=== PATIENT | male | born 1980 | race Two or more races ===

== ENCOUNTER 2016-08-01 01:09 | Emergency (ER) | payer OTHER ==
[2016-08-01] MEDS ORDERED: NS 1,000 ML IV ONE (01:27)
[2016-08-01] MEDS ORDERED: ONDANSETRON 4 MG/2 ML VIAL IVP ONE (01:27)
[2016-08-01 01:41] LABS: % IMMATURE GRANULYOCYTES 0.2 % (0.0-1.1); ABSOLUTE IMMATURE GRANULOCYTES 0.03 10^3/uL (0.00-0.10); ADD DIFF? NO; ADD MORPH? NO; ADD SCAN? NO; ATYPICAL LYMPHOCYTE FLAG 0 (0-99); FRAGMENT RBC FLAG 0 (0-99); HEMATOCRIT 44.3 % (40.0-51.0); HEMOGLOBIN 15.8 g/dL (13.7-17.5); LEFT SHIFT FLG 0 (0-99); LIPEMIA HEMOLYSIS FLAG 90 (0-99); MEAN CELL HEMOGLOBIN 29.1 pg (27.9-34.1); MEAN CELL HEMOGLOBIN CONCENTR. 35.7 g/dL (32.4-36.7); MEAN CELL VOLUME 81.6 fL (81.5-99.8); MEAN PLATELET VOLUME 9.7 fL (8.7-11.7); PLATELET CLUMPS FLAG 0 (0-99); PLATELET COUNT 197 10^3/uL (150-400); RED BLOOD CELL COUNT 5.43 10^6/uL (4.40-6.38); RED CELL DISTRIBUTION WIDTH 11.9 % (11.5-15.2)
[2016-08-01 01:50] LABS: ALANINE AMINOTRANSFERASE 34 IU/L (21-72); ALBUMIN 4.3 g/dL (3.5-5.0); ALKALINE PHOSPHATASE 95 IU/L (38-126); ANION GAP 13 mEq/L (8-16); ASPARTATE AMINOTRANSFERASE 21 IU/L (17-59); BILIRUBIN-CONJUGATED 0.2 mg/dL (0.0-0.5); BILIRUBIN-UNCONJUGATED 0.8 mg/dL (0.0-1.1); CALCIUM 9.3 mg/dL (8.5-10.4); CARBON DIOXIDE 25 mEq/l (22-31); CHLORIDE 101 mEq/L (97-110); CREATININE 0.9 mg/dL (0.7-1.3); GLOMERULAR FILTRATION RATE > 60; GLUCOSE 106 mg/dL (70-100); POTASSIUM 3.6 mEq/L (3.5-5.2); SODIUM 139 mEq/L (134-144); TOTAL PROTEIN 7.1 g/dL (6.3-8.2)
[2016-08-01] MEDS ORDERED: IOPAMIDOL (ISOVUE-300) 50 ML VIAL IV ONE (02:14)
--- NOTE | 2016-08-01 03:14 | EDPHY ---
H & P Stated Complaint: ABD PAIN OFF/ON SINCE YEST, QUEST LACTOSE INTOL Time Seen by Provider: 08/01/16 01:18 HPI/ROS: HPI The patient presents with abdominal pain which has been present for the last 2 days. It has been intermittent and he 1st noticed it after dinner last night. It lasted for about 5 hours then got better on its own. Tonight again after dinner the pain became more severe and has been constant ever since. It is a dull pain, moderate in severity, is throughout his lower abdomen and does not radiate. He took a dose of lactate to see if that would help his symptoms, but it did not. he last had a small bowel movement earlier today. He had an episode of vomiting tonight. He has a history of prior abdominal surgery at the age of 14 for possibly a Meckel's diverticulum.. REVIEW OF SYSTEMS Constitutional: No fever, no chills. Eyes: No discharge. ENT: No sore throat. Cardiovascular: No chest pain, no palpitations. Respiratory: No cough, no shortness of breath. Gastrointestinal: See HPI Genitourinary: No hematuria. Musculoskeletal: No back pain. Skin: No rashes. Neurological: No headache. PMHx: Meckel's diverticulum PHYSICAL General Appearance: Alert, no distress Eyes: Pupils equal and round no pallor or injection ENT, Mouth: Mucous membranes moist Respiratory: There are no retractions, lungs are clear to auscultation Cardiovascular: Regular rate and rhythm Gastrointestinal: Abdomen is soft and and tender in both lower quadrants without guarding or rebound, no masses, bowel sounds normal Neurological: A&O, moves all extremities Skin: Warm and dry, no rashes Musculoskeletal: Neck is supple non tender Extremities: symmetrical, full range of motion Psychiatric: Patient is oriented X 3, there is no agitation Source: Patient Exam Limitations: No limitations - Personal History Current Tetanus/Diphtheria Vaccine: Yes - Medical/Surgical History Hx Asthma: No Hx Chronic Respiratory Disease: No Hx Diabetes: No Hx Cardiac Disease: No Hx Renal Disease: No Hx Cirrhosis: No Hx Alcoholism: No Hx HIV/AIDS: No Hx Splenectomy or Spleen Trauma: No 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 - Social History Smoking Status: Never smoked Constitutional: Initial Vital Signs Temperature (C) 36.8 C 08/01/16 01:12 Heart Rate 60 08/01/16 01:12 Respiratory Rate 18 08/01/16 01:12 Blood Pressure 125/68 H 08/01/16 01:12 O2 Sat (%) 97 08/01/16 01:12 O2 Delivery Mode Room Air Allergies/Adverse Reactions: No Known Allergies Allergy (Unverified 08/01/16 01:11) Home Medications: Medication Instructions Recorded Magnesium Citrate [Magnesium 300 ml PO ONCE #1 bottle 08/01/16 Citrate 300 ml (*)] Polyethylene Glycol 3350 [Miralax 17 gm PO DAILY #10 pkt 08/01/16 17 gm (*)] Medical Decision Making - Diagnostics Imaging: CT scan of abdomen with IV contrast shows distended colon with fecal material and minimal fecalization of distal small bowel, discussed with Dr. Schwartz of Radiology. ED Course/Re-evaluation: The patient was given a L of normal saline and a dose of morphine with improvement in his symptoms. Labs were checked and were relatively unremarkable. He had a CT scan which demonstrated severe constipation. I have discussed this finding with him. He says he has no prior history of constipation. I will discharge him with MiraLax and magnesium citrate. I have discussed with him high-fiber diet and plenty of fluids as well. Differential Diagnosis: This is a 35-year-old man with history of Meckel's diverticulum who presents from home with diffuse abdominal pain associated with vomiting for the last 2 days Differential diagnosis includes small bowel obstruction, diverticulitis, gastritis, constipation. - Data Points Laboratory Results: Laboratory Results 08/01/16 01:30 08/01/16 01:30 08/01/16 01:30 WBC 12.02 H 10^3/uL (3.80-9.50) RBC 5.43 10^6/uL (4.40-6.38) Hgb 15.8 g/dL (13.7-17.5) Hct 44.3 % (40.0-51.0) MCV 81.6 fL (81.5-99.8) MCH 29.1 pg (27.9-34.1) MCHC 35.7 g/dL (32.4-36.7) RDW 11.9 % (11.5-15.2) Plt Count 197 10^3/uL (150-400) MPV 9.7 fL (8.7-11.7) Neut % (Auto) 83.8 H % (39.3-74.2) Lymph % (Auto) 11.7 L % (15.0-45.0) [place] % (Auto) 3.8 L % (4.5-13.0) Eos % (Auto) 0.2 L % (0.6-7.6) Baso % (Auto) 0.3 % (0.3-1.7) Nucleat RBC Rel Count 0.0 % (0.0-0.2) Absolute Neuts (auto) 10.06 H 10^3/uL (1.70-6.50) Absolute Lymphs (auto) 1.41 10^3/uL (1.00-3.00) Absolute Monos (auto) 0.46 10^3/uL (0.30-0.80) Absolute Eos (auto) 0.02 L 10^3/uL (0.03-0.40) Absolute Basos (auto) 0.04 10^3/uL (0.02-0.10) Absolute Nucleated RBC 0.00 10^3/uL (0-0.01) Immature Gran % 0.2 % (0.0-1.1) Immature Gran # 0.03 10^3/uL (0.00-0.10) Sodium 139 mEq/L (134-144) Potassium 3.6 mEq/L (3.5-5.2) Chloride 101 mEq/L (97-110) Carbon Dioxide 25 mEq/l (22-31) Anion Gap 13 mEq/L (8-16) BUN 20 mg/dL (7-23) Creatinine 0.9 mg/dL (0.7-1.3) Estimated GFR > 60 Glucose 106 H mg/dL (70-100) Calcium 9.3 mg/dL (8.5-10.4) Total Bilirubin 1.0 mg/dL (0.1-1.4) Conjugated Bilirubin 0.2 mg/dL (0.0-0.5) Unconjugated Bilirubin 0.8 mg/dL (0.0-1.1) AST 21 IU/L (17-59) ALT 34 IU/L (21-72) Alkaline Phosphatase 95 IU/L (38-126) Total Protein 7.1 g/dL (6.3-8.2) Albumin 4.3 g/dL (3.5-5.0) Lipase 66.0 IU/L (23-300) Medications Given: Discontinued Medications Sodium Chloride (Ns) 1,000 mls @ 0 mls/hr IV ONCE ONE PRN Reason: Wide Open Stop: 08/01/16 01:28 Last Admin: 08/01/16 01:56 Dose: 1,000 mls Morphine Sulfate (Morphine) 6 mg IVP EDNOW ONE Stop: 08/01/16 01:28 Last Admin: 08/01/16 01:55 Dose: 6 mg Ondansetron HCl (Zofran) 4 mg IVP EDNOW ONE Stop: 08/01/16 01:28 Last Admin: 08/01/16 01:57 Dose: 4 mg Departure - Departure Disposition: Home, Routine, Self-Care Clinical Impression: Abdominal pain, Constipation Condition: Good Instructions: Constipation (ED), High Fiber Diet (ED) Referrals: Leonila Rose MD [Primary Care Provider] - As per Instructions Prescriptions: Magnesium Citrate [Magnesium Citrate 300 ml (*)] 300 ml PO ONCE #1 bottle Polyethylene Glycol 3350 [Miralax 17 gm (*)] 17 gm PO DAILY #10 pkt
[2016-08-01] MEDS ORDERED: MAGNESIUM CITRATE 300 ML BOTTLE ONE (03:31)
[2016-08-01 03:39] VITALS: BP 107/66; PULSE 50; RESP 16; TEMP 96.7; O2SAT 95
--- NOTE | 2016-08-01 11:20 | CT ---
CT Scan of the Abdomen and Pelvis With Contrast Indication: Abdominal pain in a 35-year-old male with a history of volvulus, appendectomy and bowel s urgery. Technique: Multidetector CT images of the abdomen and pelvis were obtained following the uneventful i ntravenous administration of 100 mL Isovue-300 contrast. Dilute oral contrast was also administered. Dose reduction techniques were utilized. Abdomen: Lung bases: Normal. No pleural fluid. Moderately large amount of gas and fecal material are seen throughout the colon to the level of the r ectum. Sigmoid colon is rather prominently dilated. There is minimal fecalization of the distal small bowel which may represent minimal low-grade obstruction secondary to the colonic findings. There is a focal region of prior small bowel surgery in the mid abdomen. There is no associated bowel obstruct ion at the operative level. No free air is seen. Liver: Normal. Biliary system: Normal gallbladder. No intra or extrahepatic dilatation. Spleen: Normal. Pancreas: Normal. Adrenals: Normal. Kidneys: No obstruction or solid masses. Abdominal Aorta: No aneurysm. No ascites, or retroperitoneal lymphadenopathy. CT Pelvis Findings: By clinical history the appendix is surgically absent. No free fluid or free air is seen. Degenerative changes are noted in the spine. Impression: 1. Extensive colonic gas and fecal material raises the possibility of constipation. 2. See above report for additional findings. The study was performed as an emergency on-call case and discussed by telephone with Dr. Jacobson at 0 300 hours. The final interpretation is concordant with the original communication.
== END 2016-08-01 03:40 | disposition home or self-care (01) ==
DX: K59.00 Constipation, unspecified (principal)
CPT/HCPCS: 96374; J2405; Q9967

== ENCOUNTER 2016-08-03 19:50 | Emergency (ER) | payer OTHER ==
[2016-08-03 19:58] VITALS: TEMP 97.3
[2016-08-03] MEDS ORDERED: HYDROmorphONE/DILAUDID 1 MG/ML SYR IVP ONE ×2 (20:21→21:18)
[2016-08-03] MEDS ORDERED: ONDANSETRON DISINTEGRATING 4 MG TAB PO ONE (20:21)
[2016-08-03] MEDS ORDERED: ONDANSETRON 4 MG/2 ML VIAL ONE (20:23)
[2016-08-03] MEDS ORDERED: HYDROmorphONE/DILAUDID 1 MG/ML SYR ONE (20:23)
[2016-08-03] MEDS ORDERED: NS 1,000 ML IV ONE ×2 (20:31→21:08)
--- NOTE | 2016-08-03 20:44 | EDPHY ---
H & P Time Seen by Provider: 08/03/16 20:29 HPI/ROS: HPI Lower abdominal pain. 35-year-old male by private vehicle with his girlfriend. This patient has a history of a Meckel's diverticulum with what sounds like a bowel resection about 25 years ago. He has also had an appendectomy. He reports he developed lower abdominal pain starting on Tuesday. He was seen in the emergency department Tuesday morning. His CT scan showed constipation but no other significant pathology. He was discharged from the emergency department. He reports that he felt better on Tuesday. He reports that his pain started returning yesterday and has been associated with watery diarrhea and 2 episodes of nonbilious nonbloody vomiting. He describes the pain is very intense and cramping in the lower abdomen. ROS: Constitutional: No fever, no chills. No weakness. Eyes: No discharge. No changes in vision. ENT: No sore throat. No nasal congestion or rhinorrhea. Respiratory: No cough. No shortness of breath. Cardiac: No chest pain, no palpitations. Gastrointestinal: No abdominal pain, no vomiting, no diarrhea. Genitourinary: No hematuria. No dysuria or increased frequency with urination. Musculoskeletal: No back pain. No neck pain. No myalgias or arthralgias. Skin: No rashes. Neurological: No headache. No focal weakness or altered sensation. Past medical history: Appendectomy, Meckel's diverticulum, bowel resection. Social history: Nonsmoker. He is from [facility]. Here with his girlfriend. Physical Exam: General Appearance: Alert, he appears uncomfortable. This patient is responding to questions appropriately and in full sentences. This patient appears well-hydrated and well-nourished. Eyes: Pupils equal and round no pallor or injection. No lid edema, erythema or injection. Respiratory: There are no retractions, lungs are clear to auscultation with good air movement bilaterally. Cardiovascular: Regular rate and rhythm. No murmur. Gastrointestinal: Abdomen is soft with vague lower abdominal tenderness on palpation, no masses, bowel sounds normal. No focal tenderness at McBurney's point. No Webb sign. Neurological: Motor sensory function is grossly intact. Cranial nerves are normal. Gait is normal. Skin: Warm and dry, no rashes. Musculoskeletal: Neck is supple and nontender. Extremities are symmetrical. All joints range without pain or impingement. Psychiatric: No agitation. No depression. Database: EKG: Imaging: CT abdomen and pelvis without IV contrast: Negative for small-bowel obstruction. Moderate stool noted. No free fluid. No free air. No other significant pathology. Results were discussed with staff radiologist Dr. Alvino Davidson. Procedures: Emergency department course: IV placed. He was placed on a monitor. He was started on IV normal saline with 1 L to be given over the next hour. He was initially given 1 mg of IV hydromorphone and 4 mg of IV Zofran. Given his prior surgical history and his level of discomfort at this time as well as the history of vomiting there is a concern for bowel obstruction/volvulus. I discussed reimaging by CT. He endorses. 10:30 p.m., patient re-evaluated. Results of this CAT scan were discussed with him. He is still having some pain but states that he feels better. Repeat abdominal exam he is soft with mild and vague lower abdominal tenderness on palpation. I discussed admission with him for observation and pain control overnight. He is not sure he wants to do this. He is asking for time to talk over with his girlfriend. 11:15 p.m., patient re-evaluated. Repeat abdominal exam is soft, nontender nondistended. He is declining admission. Risks were discussed with him with his full understanding. I will give him follow-up referral to Gastroenterology. Return to emergency department precautions were thoroughly reviewed with him. All of his questions were answered. He was discharged home in good condition with his girlfriend. Differential Diagnosis: The differential diagnosis on this patient includes but is not limited to bowel obstruction, volvulus, diverticulitis, colitis. This represents a partial list of diagnoses considered. These considerations are based on history, physical exam, past history, reassessment and diagnostic testing. Smoking Status: Never smoked Constitutional: Initial Vital Signs Temperature (C) 36.3 C 08/03/16 19:53 Heart Rate 60 08/03/16 19:53 Respiratory Rate 22 H 08/03/16 19:53 Blood Pressure 120/83 H 08/03/16 19:53 O2 Sat (%) 96 08/03/16 19:53 O2 Delivery Mode Room Air Allergies/Adverse Reactions: No Known Allergies Allergy (Unverified 08/03/16 19:52) Home Medications: Medication Instructions Recorded Magnesium Citrate [Magnesium 300 ml PO ONCE #1 bottle 08/01/16 Citrate 300 ml (*)] Polyethylene Glycol 3350 [Miralax 17 gm PO DAILY #10 pkt 08/01/16 17 gm (*)] Docusate Sodium [Colace 100 MG (*)] 100 mg PO TID #20 cap 08/03/16 Hydrocodone/APAP 5/325 [[place] 1 - 2 tab PO Q4-6PRN PRN #10 tab 08/03/16 5/325 (*)] Medical Decision Making - Data Points Laboratory Results: Laboratory Results 08/03/16 20:20 08/03/16 20:20 08/03/16 08/03/16 21:15 20:20 WBC 10.31 H 10^3/uL (3.80-9.50) RBC 5.69 10^6/uL (4.40-6.38) Hgb 16.1 g/dL (13.7-17.5) Hct 46.4 % (40.0-51.0) MCV 81.5 fL (81.5-99.8) MCH 28.3 pg (27.9-34.1) MCHC 34.7 g/dL (32.4-36.7) RDW 12.0 % (11.5-15.2) Plt Count 198 10^3/uL (150-400) MPV 10.1 fL (8.7-11.7) Neut % (Auto) 72.3 % (39.3-74.2) Lymph % (Auto) 19.3 % (15.0-45.0) [place] % (Auto) 7.3 % (4.5-13.0) Eos % (Auto) 0.3 L % (0.6-7.6) Baso % (Auto) 0.4 % (0.3-1.7) Nucleat RBC Rel Count 0.0 % (0.0-0.2) Absolute Neuts (auto) 7.46 H 10^3/uL (1.70-6.50) Absolute Lymphs (auto) 1.99 10^3/uL (1.00-3.00) Absolute Monos (auto) 0.75 10^3/uL (0.30-0.80) Absolute Eos (auto) 0.03 10^3/uL (0.03-0.40) Absolute Basos (auto) 0.04 10^3/uL (0.02-0.10) Absolute Nucleated RBC 0.00 10^3/uL (0-0.01) Immature Gran % 0.4 % (0.0-1.1) Immature Gran # 0.04 10^3/uL (0.00-0.10) Sodium 139 mEq/L (134-144) Potassium 4.2 mEq/L (3.5-5.2) Chloride 99 mEq/L (97-110) Carbon Dioxide 27 mEq/l (22-31) Anion Gap 13 mEq/L (8-16) BUN 22 mg/dL (7-23) Creatinine 1.4 H D mg/dL (0.7-1.3) Estimated GFR 57 Glucose 94 mg/dL (70-100) Calcium 9.6 mg/dL (8.5-10.4) Urine Color PALE YELLOW Urine Appearance CLEAR Urine pH 8.0 H (5.0-7.5) Ur Specific [place] 1.008 (1.002-1.030) Urine Protein NEGATIVE (NEGATIVE) Urine Ketones 1+ H (NEGATIVE) Urine Blood NEGATIVE (NEGATIVE) Urine Nitrate NEGATIVE (NEGATIVE) Urine Bilirubin NEGATIVE (NEGATIVE) Urine Urobilinogen NEGATIVE EU (0.2-1.0) Ur Leukocyte Esterase NEGATIVE (NEGATIVE) Urine RBC 1-3 /hpf (0-3) Urine WBC 1-3 /hpf (0-3) Ur Epithelial Cells Not Reported Amorphous Sediment PRESENT /hpf (NONE-1+) Ur Culture Indicated? NOT INDICATED (NI) Urine Glucose NEGATIVE (NEGATIVE) Medications Given: Discontinued Medications Hydromorphone HCl (Dilaudid) 1 mg IVP EDNOW ONE Stop: 08/03/16 20:22 Last Admin: 08/03/16 20:31 Dose: 1 mg Hydromorphone HCl (Dilaudid) 0.5 mg IVP EDNOW ONE Stop: 08/03/16 21:19 Last Admin: 08/03/16 21:25 Dose: 0.5 mg Sodium Chloride (Ns) 1,000 mls @ 0 mls/hr IV ONCE ONE PRN Reason: Wide Open Stop: 08/03/16 20:32 Last Admin: 08/03/16 20:31 Dose: 1,000 mls Sodium Chloride (Ns) 1,000 mls @ 0 mls/hr IV ONCE ONE PRN Reason: Wide Open Stop: 08/03/16 21:09 Last Admin: 08/03/16 21:10 Dose: 1,000 mls Ondansetron HCl (Zofran Odt) 4 mg PO EDNOW ONE Stop: 08/03/16 20:22 Last Admin: 08/03/16 20:31 Dose: 4 mg Ondansetron HCl (Zofran) 4 mg IVP EDNOW ONE Stop: 08/03/16 22:29 Last Admin: 08/03/16 22:37 Dose: 4 mg Departure - Departure Disposition: Home, Routine, Self-Care Clinical Impression: Lower abdominal pain Condition: Good Instructions: Acute Abdominal Pain (ED) Additional Instructions: Read and follow provided instructions. Follow-up with sizing machine tender as soon as possible, within the next 2-3 days , for re-evaluation. [place]/Percocet dosin-2 every 4-[address] for [address] Do not drive on this medication. Ibuprofen dosin mg every 6 hours with meals for the next 3 days only. Return to the emergency department for worsening pain, vomiting, fever, blood in stool or other serious concerns. Referrals: Joselito Hollingsworth MD, FACG [Medical Doctor] - As per Instructions Ron Macario MD [Medical Doctor] - As per Instructions Prescriptions: Docusate Sodium [Colace 100 MG (*)] 100 mg PO TID #20 cap Hydrocodone/APAP 5/325 [[place]eflin 5/325 (*)] 1 - 2 tab PO Q4-6PRN PRN #10 tab PRN Reason: Pain, Moderate
[2016-08-03 20:49] LABS: % IMMATURE GRANULYOCYTES 0.4 % (0.0-1.1); ABSOLUTE IMMATURE GRANULOCYTES 0.04 10^3/uL (0.00-0.10); ADD DIFF? NO; ADD MORPH? NO; ADD SCAN? NO; ATYPICAL LYMPHOCYTE FLAG 10 (0-99); FRAGMENT RBC FLAG 0 (0-99); HEMATOCRIT 46.4 % (40.0-51.0); HEMOGLOBIN 16.1 g/dL (13.7-17.5); LEFT SHIFT FLG 0 (0-99); LIPEMIA HEMOLYSIS FLAG 90 (0-99); MEAN CELL HEMOGLOBIN 28.3 pg (27.9-34.1); MEAN CELL HEMOGLOBIN CONCENTR. 34.7 g/dL (32.4-36.7); MEAN CELL VOLUME 81.5 fL (81.5-99.8); MEAN PLATELET VOLUME 10.1 fL (8.7-11.7); PLATELET CLUMPS FLAG 10 (0-99); PLATELET COUNT 198 10^3/uL (150-400); RED BLOOD CELL COUNT 5.69 10^6/uL (4.40-6.38)
[2016-08-03 21:11] LABS: ANION GAP 13 mEq/L (8-16); CALCIUM 9.6 mg/dL (8.5-10.4); CARBON DIOXIDE 27 mEq/l (22-31); CHLORIDE 99 mEq/L (97-110); CREATININE 1.4 mg/dL (0.7-1.3); GLOMERULAR FILTRATION RATE 57; GLUCOSE 94 mg/dL (70-100); POTASSIUM 4.2 mEq/L (3.5-5.2); SODIUM 139 mEq/L (134-144)
[2016-08-03 21:25] LABS: COLOR PALE YELLOW; LEUKOCYTE ESTERASE,URINE NEGATIVE (NEGATIVE); NITRITE,URINE NEGATIVE (NEGATIVE)
[2016-08-03 21:35] LABS: AMORPHOUS PRESENT /hpf (NONE-1+)
--- NOTE | 2016-08-03 22:06 | CT ---
CT Scan of the Urinary Tract (Abdomen and Pelvis Without Contrast) Clinical Indications: Abdominal pain. Prior abdominal surgery for volvulus. Technique: Multidetector helical CT imaging was performed from the kidneys to the urinary bladder wi thout contrast. Findings: Abdomen: No calcifications are found within the kidneys, ureters and bladder. No evidence of hydron ephrosis. Perirenal fat is not edematous. Anastomotic suture is present in the mid small bowel to the left of midline at the level of the umbil icus, without small bowel distention. Moderate retained stool is present throughout the colon, especi ally the right colon and transverse colon. No free air or peritoneal fluid. The appendix is surgicall y absent by history. Pelvis: No pelvic masses are seen. There is no free fluid seen. Impression: Negative non-contrast CT examination of the urinary system. Prior small bowel surgery, w ithout features of small bowel obstruction. Moderate retained stool throughout the ascending and venegas sverse colon. Results called to Dr. Beck at 10:00 PM. Attention: This CT examination is specifically designed to evaluate patients who are clinically susp ected of having acute obstructive uropathy. This examination does not use radiographic contrast, and as such, provides only a limited evaluation of the abdomen, pelvis and retroperitoneum. If there i s further clinical suspicion for pathological conditions other than obstructive uropathy, a complete CT evaluation of the abdomen and pelvis utilizing intravenous, oral, and rectal contrast should be co nsidered.
[2016-08-03] MEDS ORDERED: ONDANSETRON 4 MG/2 ML VIAL IVP ONE (22:28)
[2016-08-03] MEDS ORDERED: HYDROCOD/APAP 5/325 PREPACK#6 BTL TAKEHOME ONE (23:18)
[2016-08-03 23:41] VITALS: BP 123/71; PULSE 70; RESP 16; O2SAT 93
== END 2016-08-03 23:45 | disposition home or self-care (01) ==
DX: R10.30 Lower abdominal pain, unspecified (principal); Z90.49 Acquired absence of other specified parts of digestive tract
CPT/HCPCS: 96374; J1170; J2405

== ENCOUNTER 2016-08-04 19:13 | Inpatient (IN) | payer OTHER ==
[2016-08-04] MEDS ORDERED: ONDANSETRON 4 MG/2 ML VIAL ONE (19:30)
[2016-08-04] MEDS ORDERED: ONDANSETRON 4 MG/2 ML VIAL IVP ONE ×2 (19:37→19:49)
[2016-08-04] MEDS ORDERED: NS 1,000 ML IV ONE ×2 (19:37→19:49)
--- NOTE | 2016-08-04 19:37 | CPEKG ---
Heart Rate: 60 RR Interval: 1000 P-R Interval: 148 QRSD Interval: 96 QT Interval: 432 QTC Interval: 432 P [place]: 77 QRS [place]: 74 T Wave [place]: 52 EKG Severity - NORMAL ECG - EKG Impression: SINUS RHYTHM Electronically Signed By: Frankie Segura 04-Aug-2016 20:51:56
--- NOTE | 2016-08-04 19:49 | EDPHY ---
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 He has a history of a Meckel's diverticulum resection with bowel resection and appendectomy in the past. Current has been in his normal state of health until 4 days ago. At that time developed severe abdominal pain and cramping which radiated to his lower abdomen. He was seen here has CT scan of his abdomen and pelvis which were read as constipation. He also had normal blood work done at that time which was unremarkable. He was sent home with laxatives and instructions to follow up as an outpatient. Patient returned yesterday stating the pain had returned. He is states that he gets up in the morning the pain pain is progressively worse as the night progresses. No nausea or vomiting. He has been taking the laxatives. CT without contrast last night showed moderate stool in the colon otherwise negative. Laboratory evaluations again at that time were unremarkable. He was sent home with magnesium citrate, MiraLax, docusate and [place]. Patient states he was feeling much better this morning. Has a course that today's gone eyes had worsening pain. The pain in the epigastrium and left lower abdomen. Again no fevers or chills. He states he did have a loose bowel movement this morning after taking the magnesium citrate. He fell while at work. Over the course of 8 afternoon pain began getting significantly worse again. Again no fevers or chills. Some nausea no vomiting. Has had some pain is epigastric which radiates to his chest as well. ROS: 10 point Review of Systems is negative except as noted in the HPI. Physical exam: Gen: Awake, Alert, uncomfortable appearing HEENT: Nose: no rhinorrhea Eyes: PERRLA, EOMI Mouth: Moist mucosa Neck: Supple, no JVD Chest: nontender, lungs clear to auscultation Heart: S1, S2 normal, no murmur Abd: Soft, left lower quadrant tenderness with deep palpation in a tenderness along the inguinal canal. Mild left abdominal guarding. Mild epigastric tenderness as well. Genetal: No scrotal tenderness or swelling. He has normal testicular lie. He does have a left inguinal hernia but there is no incarceration. No redness or swelling. Back: no CVA tenderness, no midline tenderness Ext: no edema, non-tender Skin: no rash Neuro: CN II-XII intact, Sensation grossly intact, Strength 5/5 in bilateral upper and lower extremities (Frankie Segura) Constitutional: Initial Vital Signs Temperature (C) 36.6 C 08/04/16 19:29 Heart Rate 61 08/04/16 19:29 Respiratory Rate 18 08/04/16 19:29 Blood Pressure 112/68 08/04/16 19:29 O2 Sat (%) 99 08/04/16 19:29 O2 Delivery Mode Room Air Allergies/Adverse Reactions: No Known Allergies Allergy (Unverified 08/03/16 19:52) Home Medications: Medication Instructions Recorded Magnesium Citrate [Magnesium 300 ml PO ONCE #1 bottle 08/01/16 Citrate 300 ml (*)] Polyethylene Glycol 3350 [Miralax 17 gm PO DAILY #10 pkt 08/01/16 17 gm (*)] Docusate Sodium [Colace 100 MG (*)] 100 mg PO TID #20 cap 08/03/16 Hydrocodone/APAP 5/325 [[place] 1 - 2 tab PO Q4-6PRN PRN #10 tab 08/03/16 5/325 (*)] Medical Decision Making - Diagnostics EKG Interpretation: ECG: Time 7:36 p.m.. Normal sinus rhythm. Normal intervals, normal axis, no acute ST or T-wave changes: Impression: Normal ECG (Frankie Segura) ED Course/Re-evaluation: 35-year-old male with 3rd visit for abdominal pain. ECG is normal. CBC, chemistry, LFTs, lipase and troponin are all normal. He has some left lower abdominal exam. He states that he did have a loose bowel movement this morning after using Mag citrate. The etiology of his abdominal pain remains unclear at this time. He does have a indirect inguinal hernia however there is no incarceration or message at this time. I have discussed with , general surgery. He is requesting a plain film of his abdomen and he will come and evaluate him in the emergency department. (Frankie Segura) I assumed care of the patient at 9:00 p.m. pending surgical evaluation. The patient was seen by Dr. Brantley who does not feel the patient has an acute abdomen. The patient will be admitted by the hospitalist service for observation this evening. Should his clinical condition change additional imaging may be warranted. Consultation is made with the hospitalist service who will admit the patient this evening. (Meliton Womack) - Data Points Laboratory Results: Laboratory Results 08/04/16 19:25 08/04/16 19:25 08/04/16 19:25 WBC 9.62 H 10^3/uL (3.80-9.50) RBC 5.34 10^6/uL (4.40-6.38) Hgb 15.5 g/dL (13.7-17.5) Hct 44.1 % (40.0-51.0) MCV 82.6 fL (81.5-99.8) MCH 29.0 pg (27.9-34.1) MCHC 35.1 g/dL (32.4-36.7) RDW 12.0 % (11.5-15.2) Plt Count 183 10^3/uL (150-400) MPV 10.2 fL (8.7-11.7) Neut % (Auto) 74.4 H % (39.3-74.2) Lymph % (Auto) 15.8 % (15.0-45.0) [place] % (Auto) 9.0 % (4.5-13.0) Eos % (Auto) 0.1 L % (0.6-7.6) Baso % (Auto) 0.4 % (0.3-1.7) Nucleat RBC Rel Count 0.0 % (0.0-0.2) Absolute Neuts (auto) 7.15 H 10^3/uL (1.70-6.50) Absolute Lymphs (auto) 1.52 10^3/uL (1.00-3.00) Absolute Monos (auto) 0.87 H 10^3/uL (0.30-0.80) Absolute Eos (auto) 0.01 L 10^3/uL (0.03-0.40) Absolute Basos (auto) 0.04 10^3/uL (0.02-0.10) Absolute Nucleated RBC 0.00 10^3/uL (0-0.01) Immature Gran % 0.3 % (0.0-1.1) Immature Gran # 0.03 10^3/uL (0.00-0.10) Sodium 139 mEq/L (134-144) Potassium 3.8 mEq/L (3.5-5.2) Chloride 101 mEq/L (97-110) Carbon Dioxide 23 mEq/l (22-31) Anion Gap 15 mEq/L (8-16) BUN 15 mg/dL (7-23) Creatinine 1.2 mg/dL (0.7-1.3) Estimated GFR > 60 Glucose 111 H mg/dL (70-100) Calcium 9.7 mg/dL (8.5-10.4) Total Bilirubin 1.3 mg/dL (0.1-1.4) Conjugated Bilirubin 0.2 mg/dL (0.0-0.5) Unconjugated Bilirubin 1.1 mg/dL (0.0-1.1) AST 20 IU/L (17-59) ALT 32 IU/L (21-72) Alkaline Phosphatase 79 IU/L (38-126) Troponin I < 0.012 ng/mL (0-0.034) Total Protein 7.0 g/dL (6.3-8.2) Albumin 4.4 g/dL (3.5-5.0) Lipase 107.0 IU/L (23-300) Medications Given: Discontinued Medications Sodium Chloride (Ns) 1,000 mls @ 0 mls/hr IV EDNOW ONE PRN Reason: Wide Open Stop: 08/04/16 19:38 Last Admin: 08/04/16 19:30 Dose: 1,000 mls Sodium Chloride (Ns) 1,000 mls @ 0 mls/hr IV ONCE ONE PRN Reason: Wide Open Stop: 08/04/16 19:50 Last Admin: 08/04/16 19:50 Dose: Not Given Morphine Sulfate (Morphine) 4 mg IVP ONCE ONE Stop: 08/04/16 19:50 Last Admin: 08/04/16 20:06 Dose: 4 mg Ondansetron HCl (Zofran) 4 mg IVP EDNOW ONE Stop: 08/04/16 19:38 Last Admin: 08/04/16 19:30 Dose: 4 mg Ondansetron HCl (Zofran) 4 mg IVP EDNOW ONE Stop: 08/04/16 19:50 Last Admin: 08/04/16 19:50 Dose: Not Given Departure - Departure Disposition: [facility] In[facility] Acute Clinical Impression: Abdominal pain Condition: Good
[2016-08-04 19:56] LABS: % IMMATURE GRANULYOCYTES 0.3 % (0.0-1.1); ABSOLUTE IMMATURE GRANULOCYTES 0.03 10^3/uL (0.00-0.10); ADD DIFF? NO; ADD MORPH? NO; ADD SCAN? NO; ATYPICAL LYMPHOCYTE FLAG 20 (0-99); FRAGMENT RBC FLAG 0 (0-99); HEMATOCRIT 44.1 % (40.0-51.0); HEMOGLOBIN 15.5 g/dL (13.7-17.5); LEFT SHIFT FLG 0 (0-99); LIPEMIA HEMOLYSIS FLAG 90 (0-99); MEAN CELL HEMOGLOBIN CONCENTR. 35.1 g/dL (32.4-36.7); MEAN CELL VOLUME 82.6 fL (81.5-99.8); MEAN PLATELET VOLUME 10.2 fL (8.7-11.7); PLATELET CLUMPS FLAG 0 (0-99); PLATELET COUNT 183 10^3/uL (150-400); RED BLOOD CELL COUNT 5.34 10^6/uL (4.40-6.38)
[2016-08-04 20:02] LABS: ALANINE AMINOTRANSFERASE 32 IU/L (21-72); ALBUMIN 4.4 g/dL (3.5-5.0); ALKALINE PHOSPHATASE 79 IU/L (38-126); ANION GAP 15 mEq/L (8-16); ASPARTATE AMINOTRANSFERASE 20 IU/L (17-59); BILIRUBIN,TOTAL 1.3 mg/dL (0.1-1.4); BILIRUBIN-CONJUGATED 0.2 mg/dL (0.0-0.5); BILIRUBIN-UNCONJUGATED 1.1 mg/dL (0.0-1.1); CALCIUM 9.7 mg/dL (8.5-10.4); CARBON DIOXIDE 23 mEq/l (22-31); CHLORIDE 101 mEq/L (97-110); CREATININE 1.2 mg/dL (0.7-1.3); GLOMERULAR FILTRATION RATE > 60; GLUCOSE 111 mg/dL (70-100); POTASSIUM 3.8 mEq/L (3.5-5.2); SODIUM 139 mEq/L (134-144)
[2016-08-04 20:13] LABS: TROPONIN I < 0.012 ng/mL (0-0.034)
--- NOTE | 2016-08-04 21:45 | DX ---
Two-View Abdomen Clinical Indication: Abdominal pain. FINDINGS: The bowel gas pattern is normal. A moderate amount of gas is scattered throughout the col on. A moderate amount of stool is present in the rectum. No evidence of free air. The lungs are cl ear at the bases. The heart size is normal. Bones are grossly unremarkable. IMPRESSION: Normal two-view abdomen.
[2016-08-04] MEDS ORDERED: PROMETHAZINE HCL 25 MG/ML INJ IVP PRN (23:08)
[2016-08-04] MEDS ORDERED: SENNOSIDES/DOCUSATE SODIUM TAB PO PRN (23:17)
[2016-08-04] MEDS ORDERED: POLYETHYLENE GLYCOL 3350 17 GM PKT PO PRN (23:18)
[2016-08-05] MEDS: HYDROmorphONE/DILAUDID 1 MG/ML SYR IVP PRN ×5 (01:13→23:15)
[2016-08-05] MEDS: ONDANSETRON 4 MG/2 ML VIAL IVP PRN ×2 (01:16→23:19)
--- NOTE | 2016-08-05 03:06 | PDGENHP ---
History and Physical - Chief Complaint abdominal pain - History of Present Illness Patient is a 35-year-old male with known medical history who presents to the ED complaining of abdominal pain. Patient states pain started on 07/30, located in his lower abdomen, waxing and waning in nature, at worst 9/10 in intensity. He has never experienced this type of pain before, as pain is not associated with nausea, vomiting, diarrhea, although patient does report constipation, without significant bowel movements since the pain started. He also has been unable to maintain any p.o. intake since the pain started due to intensify of pain after trying to eat. Patient was seen in the ER for these complaints on 08/01 and . CTs abdomen/pelvis were obtained on both visits, were both largely unrevealing other than evidence of constipation. He was discharged with antiemetics and stool softeners and returns to the ED again with the same symptoms. On evaluation in the ED today, patient's vital signs were stable and he was afebrile. He was complaining of intense abdominal pain and nausea. He was given antiemetics and pain control. Labs including CBC and CMP were within normal limits. Abdominal x-ray revealed normal bowel gas pattern. Surgery was consulted and recommended admission for pain control. History Information - Allergies/Home Medication List Allergies/Adverse Reactions: No Known Allergies Allergy (Unverified 08/03/16 19:52) I have personally reviewed and updated: family history, medical history, social history, surgical history - Past Medical History Additional medical history: History of Meckel's diverticulum - Surgical History Additional surgical history: Meckel's diverticulum surgical correction, with appendectomy in childhood - Family History Positive for: non-pertinent - Social History Smoking Status: Never smoked Alcohol Use: Rarely Drug Use: None Additional social history: 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 Originally from [place]. Lives here in [place] with his family. Review of Systems ROS: 10pt was reviewed & negative except for what was stated in HPI & below Physical Exam Temp Pulse Resp BP Pulse Ox 37.0 C 48 L 12 116/77 98 08/04/16 22:51 08/04/16 22:51 08/04/16 22:51 08/04/16 22:51 08/04/16 22:51 Constitutional: appears nourished, uncomfortable Eyes: PERRL, anicteric sclera, EOMI Ears, Nose, Mouth, Throat: moist mucous membranes, hearing normal, ears appear normal, no oral mucosal ulcers Cardiovascular: regular rate and rhythym, no murmur, rub, or gallop, pulses symmetric bilaterally, No JVD, No edema Peripheral Pulses: 2+: dorsalis-pedis (R), dorsalis-pedis (L) Respiratory: no respiratory distress, no rales or rhonchi, clear to auscultation Gastrointestinal: soft, non-tender abdomen, no palpable masses, tenderness, guarding, rebound, No hepatosplenomegally Genitourinary: no bladder fullness, no bladder tenderness Skin: warm, normal color, no rashes or abrasions, no fluctuance, no induration, No mottled Musculoskeletal: full muscle strength, no muscle tenderness, normal joint ROM, no joint effusions Neurologic: AAOx3, sensation intact bilaterally, CN II-XII Intact, No weakness, No numbness Psychiatric: interacting appropriately, not anxious, not encephalopathic, thought process linear Lab Data & Imaging Review 08/04/16 19:25 08/04/16 19:25 WBC 9.62 10^3/uL (3.80-9.50) H 08/04/16 19:25 RBC 5.34 10^6/uL (4.40-6.38) 08/04/16 19:25 Hgb 15.5 g/dL (13.7-17.5) 08/04/16 19:25 Hct 44.1 % (40.0-51.0) 08/04/16 19:25 MCV 82.6 fL (81.5-99.8) 08/04/16 19:25 MCH 29.0 pg (27.9-34.1) 08/04/16 19:25 MCHC 35.1 g/dL (32.4-36.7) 08/04/16 19:25 RDW 12.0 % (11.5-15.2) 08/04/16 19:25 Plt Count 183 10^3/uL (150-400) 08/04/16 19:25 MPV 10.2 fL (8.7-11.7) 08/04/16 19:25 Neut % (Auto) 74.4 % (39.3-74.2) H 08/04/16 19:25 Lymph % (Auto) 15.8 % (15.0-45.0) 08/04/16 19:25 [place] % (Auto) 9.0 % (4.5-13.0) 08/04/16 19:25 Eos % (Auto) 0.1 % (0.6-7.6) L 08/04/16 19:25 Baso % (Auto) 0.4 % (0.3-1.7) 08/04/16 19:25 Nucleat RBC Rel Count 0.0 % (0.0-0.2) 08/04/16 19:25 Absolute Neuts (auto) 7.15 10^3/uL (1.70-6.50) H 08/04/16 19:25 Absolute Lymphs (auto) 1.52 10^3/uL (1.00-3.00) 08/04/16 19:25 Absolute Monos (auto) 0.87 10^3/uL (0.30-0.80) H 08/04/16 19:25 Absolute Eos (auto) 0.01 10^3/uL (0.03-0.40) L 08/04/16 19:25 Absolute Basos (auto) 0.04 10^3/uL (0.02-0.10) 08/04/16 19:25 Absolute Nucleated RBC 0.00 10^3/uL (0-0.01) 08/04/16 19:25 Immature Gran % 0.3 % (0.0-1.1) 08/04/16 19:25 Immature Gran # 0.03 10^3/uL (0.00-0.10) 08/04/16 19:25 Sodium 139 mEq/L (134-144) 08/04/16 19:25 Potassium 3.8 mEq/L (3.5-5.2) 08/04/16 19:25 Chloride 101 mEq/L (97-110) 08/04/16 19:25 Carbon Dioxide 23 mEq/l (22-31) 08/04/16 19:25 Anion Gap 15 mEq/L (8-16) 08/04/16 19:25 BUN 15 mg/dL (7-23) 08/04/16 19:25 Creatinine 1.2 mg/dL (0.7-1.3) 08/04/16 19:25 Estimated GFR > 60 08/04/16 19:25 Glucose 111 mg/dL (70-100) H 08/04/16 19:25 Calcium 9.7 mg/dL (8.5-10.4) 08/04/16 19:25 Total Bilirubin 1.3 mg/dL (0.1-1.4) 08/04/16 19:25 Conjugated Bilirubin 0.2 mg/dL (0.0-0.5) 08/04/16 19:25 Unconjugated Bilirubin 1.1 mg/dL (0.0-1.1) 08/04/16 19:25 AST 20 IU/L (17-59) 08/04/16 19:25 ALT 32 IU/L (21-72) 08/04/16 19:25 Alkaline Phosphatase 79 IU/L (38-126) 08/04/16 19:25 Troponin I < 0.012 ng/mL (0-0.034) 08/04/16 19:25 Total Protein 7.0 g/dL (6.3-8.2) 08/04/16 19:25 Albumin 4.4 g/dL (3.5-5.0) 08/04/16 19:25 Lipase 107.0 IU/L (23-300) 08/04/16 19:25 Visualized and Interpreted imaging results: Yes Interpretation: AXR: normal bowel gas pattern. 08/03 CT abd/pelvis: no evidence of obstruction; constipation Assessment & Plan Assessment: Patient is a 35-year-old male with history of Meckel's diverticulum which was surgically corrected in childhood who presents to the ED with 5 days of abdominal pain with associated nausea, etiology of pain is unrevealing after [address]. Plan: # acute abdominal pain Etiology of the pain is unclear at this time. Differential includes partial bowel obstruction, new inflammatory bowel disease vs IBS. Surgery consulted, feel abdominal exam is not consistent with taking acute abdomen and there is no indication for surgical exploration at this point. Will check lactic acid, follow CBC and check ESR/CRP to evaluate for any underlying inflammatory state. Will continue pain control, antiemetics and IV fluid hydration. Will also obtain small-bowel follow-through study to rule out obstruction. # dispo:admit to observation unit for symptom control # full code
[2016-08-05 05:00] LABS: % IMMATURE GRANULYOCYTES 0.6 % (0.0-1.1); ABSOLUTE IMMATURE GRANULOCYTES 0.04 10^3/uL (0.00-0.10); ADD DIFF? NO; ADD MORPH? NO; ADD SCAN? NO; ATYPICAL LYMPHOCYTE FLAG 10 (0-99); FRAGMENT RBC FLAG 0 (0-99); HEMOGLOBIN 13.8 g/dL (13.7-17.5); LEFT SHIFT FLG 10 (0-99); LIPEMIA HEMOLYSIS FLAG 80 (0-99); MEAN CELL HEMOGLOBIN 28.4 pg (27.9-34.1); MEAN CELL HEMOGLOBIN CONCENTR. 33.7 g/dL (32.4-36.7); MEAN CELL VOLUME 84.4 fL (81.5-99.8); MEAN PLATELET VOLUME 10.2 fL (8.7-11.7); PLATELET CLUMPS FLAG 0 (0-99); PLATELET COUNT 146 10^3/uL (150-400); RED BLOOD CELL COUNT 4.86 10^6/uL (4.40-6.38); RED CELL DISTRIBUTION WIDTH 12.1 % (11.5-15.2)
[2016-08-05 05:28] LABS: ANION GAP 6 mEq/L (8-16); C-REACTIVE PROTEIN < 5.0 mg/L (<10.0); CALCIUM 7.5 mg/dL (8.5-10.4); CARBON DIOXIDE 24 mEq/l (22-31); CHLORIDE 112 mEq/L (97-110); CREATININE 0.7 mg/dL (0.7-1.3); GLOMERULAR FILTRATION RATE > 60; GLUCOSE 79 mg/dL (70-100); POTASSIUM 3.7 mEq/L (3.5-5.2); SODIUM 142 mEq/L (134-144)
[2016-08-05 05:47] LABS: SEDIMENTATION RATE 3 MM/HR (0-15)
--- NOTE | 2016-08-05 06:06 | SOAPPROG ---
Downtime Inpatient MD Late Entry SOAP Note: Patient was seen in the Emergency Room 08/04/16 for Surgical Consultation: Full consult note was dictated (#[id number]) but has not yet been transcribed. I have left a message for Medical Records. Carly Brantley MD, FACS
--- NOTE | 2016-08-05 06:39 | PDCONSULT ---
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 Kelley Brantley MD, FACS
[2016-08-05] MEDS: NS 1,000 ML IV SCH ×2 (07:35→23:14)
--- NOTE | 2016-08-05 10:05 | GCON ---
[f rep st] CONSULTATION SURGICAL CONSULTATION DATE OF CONSULTATION: 08/04/2016 CHIEF COMPLAINT: Abdominal pain. HISTORY OF PRESENT ILLNESS: Patient is a 35-year-old previously healthy male, presented to the emergency department on the , the , and now on the for evaluation of intermittent recurring abdominal pain. The patient was evaluated on the and the in the emergency department with CT scans of the abdomen that showed primarily obstipation. He was treated symptomatically with laxatives. He noted at home some fever low-grade associated with nausea and emesis, and after taking Mag citrate had liquid stool for the better part of a day. This was between his visit on the and the . He returned on the with recurrent pain and had another CT scan performed, which showed persistent obstipation. He was given additional laxatives and some narcotics. He felt pretty good this morning. 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 Approximately 4 o'clock in the afternoon, the pain began to recur. He presented to the emergency department this evening, and was seen and evaluated by Dr. Shai Ardon and Dr. Meliton Gipson. Surgical consultation was requested. The patient currently feels better after receiving intravenous morphine. He has no localized pain in the abdomen. When he did experience pain it was in the left lower quadrant and left flank area. He has had no emesis today. He has been passing flatus today. He had a bowel movement today. The patient reports no appetite currently. PAST MEDICAL HISTORY: Significant for surgery at age 14 for what sounds like a Meckel's diverticulum requiring small bowel resection and anastomosis in [place]. MEDICATIONS: He takes no medications on a regular basis. ALLERGIES: He has no known drug allergies. 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 He does not have a primary care physician that he has ever seen in [place] and has lived here for 3-1/2 years. He is an avid runner. FAMILY HISTORY: Noncontributory. REVIEW OF SYSTEMS: Patient denies melena, hematochezia, hematemesis, dysuria or hematuria. There is no history of nephrolithiasis. He does report a low- grade fever. PHYSICAL EXAMINATION: GENERAL: Reveals a slender, athletic-appearing, young man who is in no acute distress. VITAL SIGNS: Blood pressure is 106/65, heart rate is 55, respiratory rate is 18, O2 saturation is 93% on room air, temperature is 36.6. HEENT: There is no scleral icterus. NECK: Supple without adenopathy. Trachea is midline. LUNGS: Clear to auscultation. HEART: Regular in rate and rhythm. ABDOMEN: Flat, soft with a midline incision that appeared to heal by secondary intention, but without hernia. Bowel sounds are present and normoactive. There is no percussion tenderness. There is no tenderness to palpation anteriorly. The patient has mild tenderness in the left flank. There is no inguinal mass, adenopathy or hernia, although I did not stand up the patient for a formal hernia exam. RECTAL EXAM: Not repeated. IMAGING STUDIES: Two prior CT scans were reviewed and show a prior surgical anastomosis without dilatation of the small bowel proximally. There was extensive constipation present on both the CAT scans. Plain films today show gas throughout the colon without significant dilatation of the small bowel or stomach. There is no free air. LABORATORY STUDIES: WBC today is 9.6, hemoglobin 15.5, hematocrit 44.1, platelets are 183,000, sodium is 139, potassium 3.8, chloride 101, bicarb 23, BUN 15, creatinine 1.2, glucose 111, bilirubin 1.3, conjugated bilirubin 0.2, unconjugated bilirubin 1.1, AST is 20, ALT is 32, alkaline phosphatase is 79, albumin is 4.4, lipase is 107. IMPRESSION: Abdominal pain of unclear etiology. No evidence of surgical abdomen. There is a broad differential that does include adhesions since the patient had a prior surgery, but I would not recommend exploration at this time. If further symptoms persist would recommend a small bowel follow through study with Gastrografin and GI consultation. This could be performed as an outpatient though the patient is reluctant to return home without a firm diagnosis. I discussed the case with Dr. Meliton Womack and recommended admission to the medical service. /[id number]/MODL MTDD
--- NOTE | 2016-08-05 13:13 | SOAPPROG ---
SOAP Progress Note Assessment/Plan: Assessment: Plan: Subjective: vss, af sbft totally normal. pt can't locate areaof pain., just all over severe post prandial pain, and vomiting. also says feels pain in his chest during episodes. will check an ultrasound of the gqallbladder. Objective: Vital Signs Temp Pulse Resp BP Pulse Ox 36.9 C 54 L 18 98/58 L 98 08/05/16 07:33 08/05/16 07:33 08/05/16 07:33 08/05/16 07:33 08/05/16 07:33 Laboratory Results 08/05/16 04:45 08/05/16 04:45 08/04/16 08/05/16 08/06/16 05:59 05:59 05:59 Intake Total 850 560 Balance 850 560 ICD10 Worksheet Patient Problems: Problems Problem Status Diagnosed Abdominal pain Acute
--- NOTE | 2016-08-05 14:26 | DX ---
Small bowel series History: Abdominal pain, most prominent after eating solid food, history of small bowel resection for Meckel's diverticulum. Comparison: CT abdomen pelvis August 03, 2016, plain film abdomen August 04, 2016. Technique: Online Content Developer view of the abdomen obtained. After the oral administration of Entero Vu, serial pily ges including intermittent spot images of the small bowel were obtained. Fluoroscopic time: 1.3 minutes. Dose= 21.2 mGy. Findings: Online Content Developer view demonstrates no obstruction. Anastomotic staple line is noted in the left mid ab domen. Mild stool is present in the proximal colon. Normal small bowel transit time with contrast kendra ntified in the ascending colon at 85 minutes. The duodenum, jejunum, and ileum have normal fold patte rn without evidence of inflammatory changes, definite intraluminal filling defects, obstruction, dila tion, or tethering. The terminal ileum is normal. Impression: Normal small bowel series.
--- NOTE | 2016-08-05 16:31 | HOSPPROG ---
Hospitalist Progress Note Assessment/Plan: ASSESSMENT/PLAN: # abdominal pain of unclear etiology - right upper quadrant ultrasound ordered by General surgery - check Meckel's scan tomorrow, fecal occult blood test - pain control IV # dispo: Inpatient needs greater than 2 midnights for treatment of the above Chart reviewed SUBJECTIVE: Ongoing abdominal pain OBJECTIVE: Vitals reviewed Comfortable, no acute distress Regular rate and rhythm, no murmurs rubs or gallops No respiratory distress, lungs clear to auscultation bilaterally; no wheezes rales or rhonchi Abdomen with normal bowel sounds, soft, diffusely tender to palpation, nontender LABORATORY DATA: Reviewed IMAGING: All imaging reviewed and discussed with Dr. Enamorado Objective: Vital Signs Temp Pulse Resp BP Pulse Ox 36.9 C 54 L 18 98/58 L 98 08/05/16 07:33 08/05/16 07:33 08/05/16 07:33 08/05/16 07:33 08/05/16 07:33 Laboratory Results 08/05/16 04:45 08/05/16 04:45 08/04/16 08/05/16 08/06/16 05:59 05:59 05:59 Intake Total 850 560 Balance 850 560 ICD10 Worksheet Patient Problems: Problems Problem Status Diagnosed Abdominal pain Acute
--- NOTE | 2016-08-05 17:50 | US ---
Sonography Limited To The Right Upper Quadrant Of The Abdomen CLINICAL HISTORY: 35-year-old male with postprandial pain. The patient has a history of a volvulus, a n appendectomy, and prior bowel surgery with a recent normal small bowel follow-through series. TECHNIQUE: A curvilinear 5 MHz transducer was used to sonographically evaluate the right upper quadra nt of the abdomen. Color Doppler was used. COMPARISON STUDIES: CT imaging of the abdomen over the last week. FINDINGS: The pancreatic contour is normal. The abdominal aorta is normal in size and tapers normally . The visualized IVC is normal in caliber. The hepatic vein trifurcation is normal. The main portal v ein is patent. The liver is normal in size, measuring 14.0 cm along the right midaxillary line. There is no intra or extrahepatic bile duct dilatation. The common bile duct measures 3.1 mm. The gallbla dder is moderately distended, and there is no evidence of cholelithiasis, sludge, polyp, wall thicken ing, pericholecystic fluid, or sonographic Webb sign. The right kidney is normal in size, shape, an d contour, with normal renal cortical thickness and no focal renal mass or hydronephrosis. It measure s 11.7 x 4.9 x 4.8 cm. The right renal cortex measures 1.4 cm. There is no ascites or right pleural e ffusion. IMPRESSION: Normal study.
[2016-08-05 20:52] VITALS: RESP 16
[2016-08-06] MEDS: HYDROmorphONE/DILAUDID 1 MG/ML SYR IVP PRN ×4 (03:19→18:22)
[2016-08-06] MEDS: ONDANSETRON 4 MG/2 ML VIAL IVP PRN ×2 (03:19→19:27)
--- NOTE | 2016-08-06 07:25 | SOAPPROG ---
Downtime Inpatient Late Entry SOAP Note: Recurrent pain last PM/UGI showed no SBO KUB this AM shows barium in colon AFVSS Abd: soft/non-tender, bowel sounds normoactive Imp: abd pain of unclear etiology-no evidence of obstruction Rec: continue medical workup/consider GI consult Meckle's scan cancelled (Patient is s/p resection) Carly Brantley MD, FACS
--- NOTE | 2016-08-06 08:09 | DX ---
IAN, 7:17 AM HISTORY: Follow-up small bowel follow-through from yesterday COMPARISON: Yesterday's barium exam FINDINGS: All the patient's small bowel barium has moved into the colon. IMPRESSION: No evidence for small bowel obstruction.
[2016-08-06] MEDS ORDERED: ONDANSETRON DISINTEGRATING 4 MG TAB PO PRN (09:54)
--- NOTE | 2016-08-06 10:04 | HOSPPROG ---
Hospitalist Progress Note Assessment/Plan: ASSESSMENT/PLAN: # abdominal pain of unclear etiology - Meckel's cancelled by Dr Brantley - pain control IV, add PO options - discussed with Dr. Orr - will plan EGD likely today # dispo: Inpatient needs greater than 2 midnights for treatment of the above # high risk receiving IV narcotics SUBJECTIVE: Ongoing abdominal pain - required IV Dilaudid overnight OBJECTIVE: Vitals reviewed Comfortable, no acute distress Regular rate and rhythm, no murmurs rubs or gallops No respiratory distress, lungs clear to auscultation bilaterally; no wheezes rales or rhonchi Abdomen with normal bowel sounds, soft, diffusely tender to palpation, nontender LABORATORY DATA: Reviewed IMAGING: All imaging reviewed and discussed with Dr. Enamorado Objective: Vital Signs Temp Pulse Resp BP Pulse Ox 36.4 C 66 16 116/67 94 08/06/16 07:53 08/06/16 07:53 08/06/16 07:53 08/06/16 07:53 08/06/16 07:53 08/05/16 08/06/16 08/07/16 05:59 05:59 05:59 Intake Total 1500 Output Total 1000 Balance 500 ICD10 Worksheet Patient Problems: Problems Problem Status Diagnosed Abdominal pain Acute
[2016-08-06] MEDS ORDERED: MIDAZOLAM 2 MG/2 ML VIAL ONE ×2 (10:54→11:16)
[2016-08-06] MEDS ORDERED: fentaNYL 100 MCG/2 ML INJ ONE (10:54)
--- NOTE | 2016-08-06 12:40 | GPN ---
[f rep st] PROCEDURE NOTE PROCEDURE: Upper endoscopy. INDICATION: Abdominal pain. MEDICATIONS: Used 5 mg of Versed, 125 mcg fentanyl. COMPLICATIONS: None acutely. CONSCIOUS SEDATION TIME: Conscious sedation was started at 11:07 a.m. and ended at 11:25 a.m., for a total time of 18 minutes. DESCRIPTION OF PROCEDURE: After informed consent was obtained, the patient was placed in the left lateral decubitus position and the forward viewing upper endoscope was advanced through the mouth and to the proximal duodenum. Retroflex views in the gastric cardia were obtained. FINDINGS: 1. Normal esophagus. 2. Mild gastritis in the antrum was noted. 3. Normal duodenum. 4. Biopsies of the gastric antrum as well as normal duodenum were obtained. IMPRESSION/RECOMMENDATIONS: Abdominal pain. No clear source of abdominal pain was identified at today's upper endoscopy. Biopsies to rule out celiac disease and H pylori were obtained. At this time, I recommend continued supportive care. I am hopeful for gradual stepwise improvement given the patient's otherwise clinical well-being and extensive, so far, negative workup. Given the gastritis and the ongoing symptoms, I believe that acid suppression therapy is prudent. Perhaps a 12-week course of daily PPI may be of benefit. My office will call the patient with the results of his biopsy results. Given prominent change in bowel habits coincident with the increased abdominal pain, despite recent negative imaging, I recommend colonoscopy to r/o malignancy , polyp, colitis, stricture, etc /[id number]/MODL MTDD
--- NOTE | 2016-08-06 13:15 | GCON ---
[f rep st] CONSULTATION INPATIENT CONSULTATION NOTE REFERRING PHYSICIAN: Abraham Good MD REASON FOR CONSULTATION: Abdominal pain. CHIEF COMPLAINT: Abdominal pain. HISTORY OF PRESENT ILLNESS: Briefly, Mr. Brewster is a 35-year-old male who was in his usual state of health until approximately 1 week ago. He began having intense epigastric and upper abdominal pain symptoms. These pain symptoms were worse with eating. Initially, he observed the symptoms but they gradually worsened. He has had 3 emergency room visits and on his 3rd emergency room visit was admitted for a workup. His workup so far has included abdominal CT twice, abdominal x-ray twice, small bowel x-ray once, and right upper quadrant ultrasound. His evaluation has been so far nondiagnostic. He reports he has baseline abdominal pain through the day, and it is made worse with eating. The pain symptoms are sometimes fairly intense. He reports no prior history of similar symptoms and was in good health until these symptoms occurred. He reports no nausea, vomiting, or diarrhea. He does report some constipation that started around the time these symptoms began. He has not started or stopped any medications. He reports no changes in diet. He has been otherwise healthy. In addition, he reports constipation, no BM for 7d, coincident with his symptoms. Laxatives, and induced BMs, however did not lead to symptom resolution. ALLERGIES: None. MEDICATIONS: None. PAST MEDICAL HISTORY: Includes Meckel diverticulum surgery many years ago. FAMILY HISTORY: Negative for colon cancer, colon polyps, peptic ulcer disease. SOCIAL HISTORY: He does not smoke. He drinks alcohol rarely. He does not use drugs. 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 He is originally from [place] [facility] but lives here in [place] with his family. REVIEW OF SYSTEMS: A complete 10-point review of systems was undertaken with the patient and is negative except for those details described in the History of Present Illness. PHYSICAL EXAM: GENERAL: This is a well-developed, well-nourished male in no apparent distress. HEENT: His pupils are equal, round, reactive to light and accommodation. His sclerae are nonicteric. His oropharynx is clear. NECK: Supple without lymphadenopathy. HEART: Regular without murmur. ABDOMEN: Soft and nontender with normoactive bowel sounds. EXTREMITIES: Free of cyanosis, clubbing, and edema. His skin is warm and dry. His joints show no arthritis or tenderness. NEURO: Grossly nonfocal. PSYCHIATRIC: Stable mood and affect. LABORATORY STUDIES/X-RAYS: Laboratory testing over the last week has included CBCs multiple times which have been normal, basic metabolic panel multiple times which has been normal. AST, ALT, alk phos, total bilirubin, lipase, albumin, and C-reactive protein also normal. CT scan of the abdomen and pelvis on 08/01/2016 showed possible constipation with even some fecalization of the distal small bowel but was otherwise normal. Abdominal scan on 08/03/2016 revealed no evidence of kidney stone. This was a non-IV contrast exam. It did again describe moderate stool. Abdominal x-ray on 08/04/2016 revealed a normal 2-view of the abdomen. Small bowel follow-through on 08/05/2016 showed normal small bowel series. Right upper quadrant ultrasound on 08/05/2016 showed normal study. Abdominal x-ray on 08/06/2016 again revealed no evidence of small bowel obstruction. IMPRESSION AND RECOMMENDATIONS: Mr. Brewster has had an idiopathic, somewhat acute pain syndrome over the last approximately 1 week. So far, he has had an extensive laboratory and imaging workup that has been nondiagnostic. The differential diagnosis might include peptic disease. Biliary dyskinesia is also possible. It is also possible he is resolving a self-limited acute infectious process from either a viral or bacterial or toxic source. Coincident with his abdominal pain, he developed a significant change in bowel habits reports no BM for 7days. Concern for colonic process is raised, but less likely. At this time, I recommend he undergo an upper endoscopy to rule out the possibility of peptic ulcer disease. He should continue on supportive care measures until then. /[id number]/MODL MTDD
[2016-08-06] MEDS: oxyCODONE IR 5 MG TAB PO PRN (14:32)
[2016-08-06] MEDS ORDERED: GOLYTELY 4000 ML BTL PO ONE (17:00)
--- NOTE | 2016-08-07 11:16 | SOAPPROG ---
SOAP Progress Note Assessment/Plan: Assessment: Abd pain unclear cause. Mild gastritis seen on EGD path pending. Suspect viral etiology with functional overlay given extensive negative w/u to date. Colonoscopy cancelled due to inability to do prep. I suspect colon exam will likely be unrevealing to cause of pain, therefore will postpone colonoscopy for now. Plan: Rec begin PPI daily for 12 weeks Suggest GI cocktail prn pain Agree with enema, can consider 1 bottle mag citrate if no results with enema Await path results Trial of PO, if can tolerate liquids then OK to discharge home with GI follow as outpt to consider colon with alternative prep. Will sign off for now. 08/07/16 11:11 Subjective: CC abd pain Pt unable to tolerate prep. Pain better now Objective: Vital Signs Temp Pulse Resp BP Pulse Ox 36.6 C 66 16 108/60 93 08/07/16 07:17 08/07/16 07:17 08/07/16 07:17 08/07/16 07:17 08/07/16 07:17 08/06/16 08/07/16 08/08/16 05:59 05:59 05:59 Intake Total 1500 1611 Output Total 1000 Balance 500 1611 Physical Exam - Physical Exam General Appearance: alert, no apparent distress Respiratory: lungs clear Cardiac/Chest: regular rate, rhythm, No diastolic murmur, No systolic murmur Abdomen: non-tender, soft ICD10 Worksheet Patient Problems: Problems Problem Status Diagnosed Abdominal pain Acute
[2016-08-07] MEDS ORDERED: MAGNESIUM CITRATE 300 ML BOTTLE PO ONE (11:52)
[2016-08-07] MEDS: PANTOPRAZOLE SODIUM 40 MG TAB PO SCH (12:50)
[2016-08-07] MEDS: BISACODYL 10 MG SUPP PR PRN (12:50)
--- NOTE | 2016-08-07 18:42 | HOSPPROG ---
Hospitalist Progress Note Assessment/Plan: # abdominal pain of unclear etiology - could be from a viral enteritis - Meckel's cancelled by Dr Brantley - pain control prn - ADAT - pt tolerating liquids. - discussed with Dr. Monreal - she recs for pt to FU as outpt since he did not tolerate colonoscopy prep, if he tolerates liquid diet. - d/w patient - he is concerned bc pain tends to occur late at night. Will monitor him overnight, if doing well in AM will DC to home. # dispo: Inpatient needs greater than 2 midnights for treatment of the above. DC to home tomorrow if doing well. Subjective: Saw pt this AM -- he did not have N/V/D. C/o constipation. no abd pain. Concerned for recurrent abd pain bc he had been to the ED several times before this admission. Objective: Vital Signs Temp Pulse Resp BP Pulse Ox 36.6 C 76 16 103/73 97 08/07/16 16:18 08/07/16 16:18 08/07/16 16:18 08/07/16 16:18 08/07/16 16:18 08/06/16 08/07/16 08/08/16 05:59 05:59 05:59 Intake Total 1500 1611 1400 Output Total 1000 Balance 500 1611 1400 General: The patient is a thin male who is A&Ox3 and in no acute distress. HEENT: normocephalic, extraocular movements intact, conjunctivae clear. Nares and oral mucosa pink and moist. Neck: trachea midline, no visible masses, no external lesions. CV: +S1/S2, reg rate and rhythm. No murmurs/rubs/gallops. Resp: unlabored breathing, lungs clear to auscultation w/o rales, rhonchi, or wheezing. Abd: soft and nondistended, bowel sounds hyperactive. Nontender to palpation throughout. Palpable 2 cm dense not of tissue just inferior to umbilicus, which appears to be scar tissue from prior surgery. Scar was noted in the same area. Musculoskeletal: 4/5 muscle strength bilateral upper and lower extremities. Neuro: cranial nerves II XII grossly intact. Intact gross motor and sensory function. Psych: appropriate mood/affect. Skin: No rash or jaundice. : no suprapubic tenderness. Heme/lymph: No peripheral edema. - Time Spent With Patient Time Spent with Patient: greater than 25 minutes Time Spent with Patient: Greater than 25 minutes spent on this patients care, greater than 50% of time spent counseling, educating, and coordinating care regarding the above mentioned plan. - Pending Discharge Pending Discharge Within 24 Hours: Yes Pending Discharge Within 48 Hours: Yes Pending Discharge Date: 08/08/16 Pending Discharge Time: 11:00 ICD10 Worksheet Patient Problems: Problems Problem Status Diagnosed Abdominal pain Acute
[2016-08-07 19:28] VITALS: TEMP 98
[2016-08-08] MEDS: oxyCODONE IR 5 MG TAB PO PRN (05:41)
[2016-08-08] MEDS: BISACODYL 10 MG SUPP PR PRN (05:42)
[2016-08-08 07:55] VITALS: BP 101/72; PULSE 66; O2SAT 98
[2016-08-08] MEDS: PANTOPRAZOLE SODIUM 40 MG TAB PO SCH (07:58)
== END 2016-08-08 10:20 | disposition home or self-care (01) | DRG 392 ==
LOC: F1N 22:33 → OBSVTOIN 08-05 16:29
PROVIDERS: ADMIT Internal Medicine; ATTEND Internal Medicine
PROC: 0DB98ZX Excision of Duodenum, Via Natural or Artificial Opening Endoscopic, Diagnostic (ICD-10-PCS; principal; 2016-08-06 11:01)
PROC: 0DB68ZX Excision of Stomach, Via Natural or Artificial Opening Endoscopic, Diagnostic (ICD-10-PCS; principal; 2016-08-06 11:01)
DX: K29.50 Unspecified chronic gastritis without bleeding (principal); K59.00 Constipation, unspecified
CPT/HCPCS: 96374; G0378; J1170; J2250; J2405; J2550; J3010